=== PATIENT | female | born 1970 | race Two or more races ===

== ENCOUNTER 2024-02-22 06:17 | Day surgery (SDC) | payer SELFPAY ==
[2024-02-22] VITALS (7 sets, daily range): BP systolic 102–124; BP diastolic 57–77; BMI 23.3
[2024-02-22] MEDS: NORMOSOL-R/PLASMALYTE-A 1000 IV (08:23)
== END 2024-02-22 11:04 | disposition home or self-care (01) ==
LOC: COSMETIC 06:17
PROVIDERS: ATTENDING PHYSICIAN Otolaryngology Facial Plastic Surgery
DX: Z41.1 Encounter for cosmetic surgery (principal); M95.0 Acquired deformity of nose; J34.2 Deviated nasal septum
CPT/HCPCS: 30400